=== PATIENT | female | born 1975 | race Caucasian/White ===

== ENCOUNTER 2016-12-30 14:32 | Emergency (ER) | payer MEDICAID, OTHER ==
[2016-12-30 14:49] VITALS: BP 113/74; PULSE 64; RESP 18; TEMP 98.3; O2SAT 97
[2016-12-30 15:20] LABS: RBC URINE 122 /hpf (0-3); URINE BACTERIA RARE (<OCC); URINE BILIRUBIN NEGATIVE (NEGATIVE); URINE BLOOD 2+ (NEGATIVE); URINE COLOR Yellow (YELLOW); URINE GLUCOSE (UA) NORMAL (Normal); URINE KETONE NEGATIVE (NEGATIVE); URINE LEUKOCYTE ESTERASE 2+ Leu/uL (Negative); URINE PROTEIN 2+ mg/dL (NEGATIVE); URINE UROBILINOGEN NORMAL mg/dL (0.2-1.0); WBC CLUMPS FEW /hpf; WBC URINE 150 /hpf (0-5)
--- NOTE | 2016-12-30 15:40 | C.PDOC ---
History Of Present Illness 41 year old female presents to the ED with complaints of dysuria since yesterday that "feels similar" to previous UTI symptoms, but are "more intense" . Patient denies fever, abdominal pain, vaginal bleeding/discharge, flank pain, hematuria, vomiting/diarrhea. Time Seen by Provider: 12/30/16 14:49 Chief Complaint (Nursing): Female Genitourinary History Per: Patient History/Exam Limitations: no limitations Onset/Duration Of Symptoms: Hrs (began yesterday) Current Symptoms Are (Timing): Still Present Severity: Mild Quality Of Discomfort: "Pain" Associated Symptoms: Urinary Symptoms, Other (dysuria ). denies: Fever, Chills , Nausea, Vomiting, Diarrhea Abnormal Vaginal Bleeding: No Past Medical History Reviewed: Historical Data, Nursing Documentation, Vital Signs Vital Signs: Last Vital Signs Temp 98.3 F 12/30/16 14:46 Pulse 64 12/30/16 14:46 Resp 18 12/30/16 14:46 BP 113/74 12/30/16 14:46 Pulse Ox 97 12/30/16 17:47 - Medical History PMH: No Chronic Diseases Family History: States: No Known Family Hx - Social History Hx Alcohol Use: No Hx Substance Use: No - Immunization History Hx Tetanus Toxoid Vaccination: No Hx Influenza Vaccination: No Hx Pneumococcal Vaccination: No Review Of Systems Except As Marked, All Systems Reviewed And Found Negative. Constitutional: Negative for: Fever, Chills Cardiovascular: Negative for: Chest Pain Respiratory: Negative for: Shortness of Breath Gastrointestinal: Negative for: Nausea, Vomiting, Abdominal Pain, Diarrhea Genitourinary: Positive for: Dysuria. Negative for: Hematuria, Vaginal Discharge, Vaginal Bleeding Physical Exam - Physical Exam Appears: Well, Non-toxic, No Acute Distress Skin: Warm, Dry Head: Normacephalic Eye(s): bilateral: Normal Inspection Oral Mucosa: Moist Cardiovascular: Rhythm Regular Respiratory: Normal Breath Sounds, No Rhonchi, No Wheezing Gastrointestinal/Abdominal: Bowel Sounds, Soft, Tenderness (mild suprapubic tenderness to palpation), No Guarding, No Rebound, Other ((-) McBurney's) Back: No CVA Tenderness Neurological/Psych: Oriented x3 ED Course And Treatment O2 Sat by Pulse Oximetry: 97 (room air ) Pulse Ox Interpretation: Normal Progress Note: UA and Ucx ordered. UA (+) for UTI - Patient given PO Ciprofloxacin and Pyridium as well as Rxs for same. Patient instructed to follow up with PMD in 1-2 days, and she understands she should return to ED if symptoms worsen. Disposition Counseled Patient/Family Regarding: Diagnosis, Need For Followup, Rx Given - Disposition Referrals: Romi Moore MD [Staff Provider] - Disposition: HOME/ ROUTINE Disposition Time: 15:40 Condition: STABLE Additional Instructions: SEGUIMIENTO CON BERNARD MDICO EN 1-2 [place] USE MEDICAMENTOS SEGN LO DIRIGIDO DEVUELVA A LA BEV DE EMERGENCIA SI LOS SNTOMAS EMPEORARAN Prescriptions: Ciprofloxacin [Cipro] 1 tab PO BID #14 tab Phenazopyridine [Pyridium] 100 mg PO TID #9 tab Instructions: Urinary Tract Infection in Men (ED) Forms: [employer] ([employer]) Print Language: INDONESIAN - POA Present On Arrival: None - Clinical Impression Clinical Impression: UTI (urinary tract infection) - Scribe Statement The provider has reviewed the documentation as recorded by the Scribe Lona Mcduffie All medical record entries made by the Scribe were at my direction and personally dictated by me. I have reviewed the chart and agree that the record accurately reflects my personal performance of the history, physical exam, medical decision making, and the department course for this patient. I have also personally directed, reviewed, and agree with the discharge instructions and disposition.
== END 2016-12-30 15:58 | disposition home or self-care (01) ==
LOC: C.ER 14:32
DX: N39.0 Urinary tract infection, site not specified (principal)